=== PATIENT | female | born 2005 | race Asian ===

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

== ENCOUNTER 2024-01-26 06:40 | Outpatient (REF) | payer OTHER, SELFPAY ==
--- NOTE | ~2024-01-26 | US_ITS ---
EXAMINATION: US PELVIC AND TRANSVAGINAL CLINICAL INFORMATION: Irregular menses. Uncertain LMP. COMPARISON: None available. TECHNIQUE: Ultrasound of the pelvis is performed using both transabdominal and transvaginal transducers along with Doppler. Transvaginal imaging is performed due to inadequate visualization transabdominally. FINDINGS: Uterus: The uterus is anteverted and retroflexed measuring 7.3 x 3.3 x 3.5 cm. The double wall endometrial thickness is 0.7 mm. The uterus is smooth in contour and has normal myometrial echogenicity. No visible fibroid. Adnexa: Both ovaries are visualized. There is normal color flow to the adnexa. There is no ovarian torsion. There is no pelvic ascites or fluid collection. Right ovary measures 2.1 x 2 x 2.3 cm. Volume of 5.1 mL. Left ovary measures 2.3 x 1.3 x 2.6 cm. Volume of 4.1 mL. US/US pelvic and transvaginal IMPRESSION: Unremarkable examination. Electronically signed by: Neto Bedoya MD 01/26/2024 02:16 PM [facility]
== END 2024-01-26 06:41 | disposition home or self-care (01) ==
LOC: HO.UMASIMG 06:40
PROVIDERS: Visit Provider Family Medicine
DX: N92.6 Irregular menstruation, unspecified (principal)
CPT/HCPCS: 76830; 76856